=== PATIENT | female | born 1985 | race Caucasian/White ===

== ENCOUNTER 2023-01-22 21:44 | Emergency (ER) | payer OTHER ==
[2023-01-22] MEDS ORDERED: ONDANSETRON 4 MG (ODT) TAB ONE (23:31)
[2023-01-22] MEDS ORDERED: ACETAMINOPHEN 500 MG TAB ONE ×2 (23:32→23:37)
[2023-01-23 00:49] LABS: SARS-COV-2 RT PCR POSITIVE (NEGATIVE)
--- NOTE | 2023-01-23 01:49 | ER ---
Nurse's Notes [facility] Name: Beena Ceja Age: 37 yrs Sex: Female : 1985 Arrival Date: 01/22/2023 Time: 21:48 Bed 7 Private MD: Diagnosis: SARS-associated coronavirus as the cause of diseases classified elsewhere Presentation: 01/22 22:02 Chief complaint: Patient states: "I woke up this morning with a fever and took a at as6 home covid test and it was positive and I can't seem to get my fever down" pt took Tylenol at 2100. Coronavirus screen: Client presents with at least one sign or symptom that may indicate coronavirus-19. Client reports previous positive COVID test result. Ebola Screen: No symptoms or risks identified at this time. Initial Sepsis Screen: Does the patient meet any 2 criteria? No. Patient's initial sepsis screen is negative. Does the patient have a suspected source of infection? No. Patient's initial sepsis screen is negative. Risk Assessment: Do you want to hurt yourself or someone else? Patient reports no desire to harm self or others. Onset of symptoms was January 22, 2023. 22:02 Method Of Arrival: Ambulatory as6 22:02 Acuity: NELLY 3 as6 Historical: - Allergies: 22:06 Amoxicillin; as6 22:06 PENICILLINS; as6 22:06 Codeine; as6 22:06 Tramadol HCl; as6 22:06 Naproxen; as6 - PMHx: 22:06 PCOS; Fibromyalgia; inersititais; Anxiety; as6 - PSHx: 22:06 shoulder; as6 - Immunization history:: Client reports having NOT received the Covid vaccine. - Social history:: Smoking status: Patient/guardian denies using tobacco. Screenin/21 02:00 [facility] ED Fall Risk Assessment (Adult) History of falling in the last 3 months, ll3 including since admission No falls in past 3 months (0 pts) Confusion or Disorientation No (0 pts) Intoxicated or Sedated No (0 pts) Impaired Gait No (0 pts) Mobility Assist Device Used No (0 pt) Altered Elimination No (0 pt) Score/Fall Risk Level 0 - 2 = Low Risk Oriented to surroundings, Maintained a safe environment, Educated pt \\T\\ family on fall prevention, incl call for assistance when getting out of bed. Abuse screen: Denies threats or abuse. Denies injuries from another. Nutritional screening: No deficits noted. Tuberculosis screening: No symptoms or risk factors identified. Assessment: 01:30 General: Appears uncomfortable, Behavior is calm, cooperative. General: Reports fever ll3 for 12-24 hours. Pain: Complains of pain in right aspect of posterior pharynx. Neuro: Level of Consciousness is awake, alert, obeys commands, Oriented to person, place, time, situation. Respiratory: Respiratory effort is even, unlabored, Respiratory pattern is regular, symmetrical. Derm: Skin is pink, warm \\T\\ dry. Vital Signs: 01/22 22:02 BP 91 / 75; Pulse 83; Resp 18 S; Temp 101.6(O); Pulse Ox 94% on R/A; Weight 112.49 kg as6 (R); Height 5 ft. 4 in. (R); Pain 4/10; 01/23 01:10 BP 98 / 67; Pulse 69; Resp 18; Temp 99.3(O); Pulse Ox 96% on R/A; ll3 01/22 22:02 Body Mass Index 42.57 (112.49 kg, 162.56 cm) as6 01/22 22:02 Pain Scale: Adult as6 ED Course: 01/22 21:48 Patient arrived in ED. ja2 21:51 Júnior Corcoran PA is PHCP. cp 21:51 Tatyana Mcclellan MD is Attending Physician. cp 22:06 Triage completed. as6 22:08 Arm band placed on. as6 01/23 02:00 Patient has correct armband on for positive identification. Placed in gown. Bed in low ll3 position. Call light in reach. Side rails up X 1. 02:02 No provider procedures requiring assistance completed. Patient did not have IV access ll3 during this emergency room visit. Administered Medications: 01/22 23:33 Drug: Ondansetron PO 4 mg Route: PO; as6 01/23 02:02 Follow up: Response: No adverse reaction ll3 01/22 23:33 Drug: Acetaminophen PO 1000 mg Route: PO; as6 01/23 02:02 Follow up: Response: No adverse reaction; Temperature is decreased ll3 Medication: 02:00 VIS not applicable for this client. ll3 Outcome: 01:49 Discharge ordered by . [email or web address] 02:02 Discharged to home ambulatory. ll3 02:02 Condition: stable 02:02 Discharge instructions given to patient, Instructed on discharge instructions, follow up and referral plans. medication usage, Demonstrated understanding of instructions, follow-up care, medications, Prescriptions given X 3. 02:02 Patient left the ED. ll3 Signatures: Júnior Corcoran PA PA cp Alexander, Jessica ja2 Harjinder Dennis RN RN as6 Prince Freire RN RN ll3
--- NOTE | 2023-01-23 01:49 | EDPHYS ---
Physician Documentation [facility] Name: Beena Ceja Age: 37 yrs Sex: Female : 1985 Arrival Date: 01/22/2023 Time: 21:48 Bed 7 Private MD: ED Physician Tatyana Mcclellan HPI: 01/22 22:45 This 37 yrs old Female presents to ER via Ambulatory with complaints of Fever, Covid+ cp Home Test. 22:45 The patient reports fever, that was measured at 104 degrees Fahrenheit. Onset: The cp symptoms/episode began/occurred today. Patient reports started feeling bad yesterday with symptoms worsening while driving to work this morning. Took home COVID-19 test that was positive. Historical: - Allergies: 22:06 Amoxicillin; as6 22:06 PENICILLINS; as6 22:06 Codeine; as6 22:06 Tramadol HCl; as6 22:06 Naproxen; as6 - PMHx: 22:06 PCOS; Fibromyalgia; inersititais; Anxiety; as6 - PSHx: 22:06 shoulder; as6 - Immunization history:: Client reports having NOT received the Covid vaccine. - Social history:: Smoking status: Patient/guardian denies using tobacco. ROS: 22:50 Constitutional: Positive for body aches, chills, fever, Negative for poor PO intake. cp 22:50 Cardiovascular: Negative for chest pain, edema. cp 22:50 Respiratory: Positive for cough, Negative for shortness of breath, wheezing. 22:50 Abdomen/GI: Positive for nausea, Negative for abdominal pain, vomiting, diarrhea, constipation. 22:50 Eyes: Negative for injury, pain, redness, and discharge. cp 22:50 ENT: Positive for sore throat, Negative for drainage from ear(s), ear pain, difficulty cp swallowing, difficulty handling secretions. 22:50 Neck: Negative for pain with movement, pain at rest, stiffness. 22:50 Skin: Negative for rash. 22:50 Neuro: Negative for altered mental status, dizziness, headache, weakness. 22:50 All other systems are negative. Exam: 22:55 Constitutional: The patient appears in no acute distress, alert, awake, cp non-diaphoretic, non-toxic, well developed, well nourished, obese. 22:55 Head/Face: Normocephalic, atraumatic. cp 22:55 Eyes: Periorbital structures: appear normal, Conjunctiva: normal, no exudate, no injection, Sclera: no appreciated abnormality, Lids and lashes: appear normal, bilaterally. 22:55 ENT: External ear(s): are unremarkable, Ear canal(s): are normal, clear, TM's: dullness, bilaterally, Nose: is normal, Mouth: Lips: moist, Oral mucosa: moist, Posterior pharynx: Airway: no evidence of obstruction, patent, Tonsils: with erythema, no enlargement, no exudate, swelling, is not appreciated, erythema, that is moderate, exudate, is not appreciated. 22:55 Neck: ROM/movement: is normal, is supple, without pain, no range of motions limitations, no meningismus, Lymph nodes: no appreciated lymphadenopathy. 22:55 Chest/axilla: Inspection: normal. 22:55 Cardiovascular: Rate: normal, Rhythm: regular, Edema: is not appreciated, JVD: is not appreciated. 22:55 Respiratory: the patient does not display signs of respiratory distress, Respirations: normal, no use of accessory muscles, no retractions, labored breathing, is not present, Breath sounds: are clear throughout, no decreased breath sounds, no stridor, no wheezing. 22:55 Abdomen/GI: Exam negative for discomfort, distension, guarding, Inspection: abdomen appears normal. 22:55 Back: CVA tenderness, is absent. 22:55 Skin: no rash present. 22:55 Neuro: Orientation: to person, place \T\ time. Mentation: is normal, Motor: moves all fours, strength is normal, Gait: is steady, at a normal pace, without difficulty. Vital Signs: 22:02 BP 91 / 75; Pulse 83; Resp 18 S; Temp 101.6(O); Pulse Ox 94% on R/A; Weight 112.49 kg as6 (R); Height 5 ft. 4 in. (R); Pain 4/10; 01/23 01:10 BP 98 / 67; Pulse 69; Resp 18; Temp 99.3(O); Pulse Ox 96% on R/A; ll3 01/22 22:02 Body Mass Index 42.57 (112.49 kg, 162.56 cm) as6 01/22 22:02 Pain Scale: Adult as6 MDM: 01/22 22:12 Patient medically screened. cp 23:00 Differential diagnosis: viral Infection, bacterial infection, pneumonia UTI, cp gastroenteritis, meningitis, uti. 01/23 01:49 Data reviewed: vital signs, nurses notes, lab test result(s). cp 01:49 Consideration of Admission/Observation Escalation of care including cp admission/observation considered. I considered the following discharge prescriptions or medication management in the emergency department Medications were administered in the Emergency Department. See MAR. Test considered but Not performed: Labs: cbc, bmp. Counseling: I had a detailed discussion with the patient and/or guardian regarding: the historical points, exam findings, and any diagnostic results supporting the discharge/admit diagnosis, lab results, the need for outpatient follow up, a family practitioner, to return to the emergency department if symptoms worsen or persist or if there are any questions or concerns that arise at home. Response to treatment: the patient's symptoms have mildly improved after treatment, and as a result, I will discharge patient. 01/22 22:30 Order name: COVID-19/FLU A+B; Complete Time: 01:04 cp 01/23 01:05 Interpretation: Reviewed. cp 01/22 22:30 Order name: Strep; Complete Time: 01:04 cp 01/23 00:40 Order name: Throat Culture EDIL 01/23 01:05 Order name: Vital Signs: please update to include temp; Complete Time: 01:11 cp Administered Medications: 01/22 23:33 Drug: Ondansetron PO 4 mg Route: PO; as6 01/23 02:02 Follow up: Response: No adverse reaction ll3 01/22 23:33 Drug: Acetaminophen PO 1000 mg Route: PO; as6 01/23 02:02 Follow up: Response: No adverse reaction; Temperature is decreased ll3 Disposition Summary: 01/23/23 01:49 Discharge Ordered Location: Home cp Problem: new cp Symptoms: have improved cp Condition: Stable cp Diagnosis - SARS-associated coronavirus as the cause of diseases classified elsewhere cp Followup: cp - With: Private Physician - When: 2 - 3 days - Reason: Worsening of condition Discharge Instructions: - Discharge Summary Sheet cp - Aspirin and Your Heart cp - Form - Excuse from Work, School, or Physical Activity cp - COVID-19 cp - How to Protect Yourself and Others - [facility] (12/30/2021) cp - 10 Things You Can Do to Manage Your COVID-19 Symptoms at Home - [facility] (05/20/2021) cp - COVID-19: Quarantine and Isolation - [facility] (02/01/2022) cp - COVID-19: What to Do If You Are Sick - [facility] (01/24/2022) cp Forms: - Medication Reconciliation Form cp - Thank You Letter cp - Antibiotic Education cp - Prescription Opioid Use cp Prescriptions: - Bromfed DM 2-30-10 mg/5 mL Oral syrup - administer 10 milliliter by ORAL route every 6 hours as needed for cold cp symptoms; 180 milliliter; Refills: 0, Product Selection Permitted - Paxlovid (EUA) 300 mg (150 mg x 2)-100 mg Oral Tablet, Dose Pack - take 1 dose pack by ORAL route per package directions; 30 tablet; Refills: 0, cp Product Selection Permitted - Zofran 4 mg Oral Tablet - take 1 tablet by ORAL route every 12 hours As needed; 20 tablet; Refills: 0, cp Product Selection Permitted Signatures: Dispatcher [employer] EDIL Júnior Corcoran PA PA cp Harjinder Dennis RN RN as6 Prince Freire RN ll3
[2023-01-23 11:47] VITALS: BP 98/67; TEMP 99.3; O2SAT 96
== END 2023-01-23 02:02 | disposition home or self-care (01) ==
LOC: ER 21:44
DX: U07.1 COVID-19 (principal); Z88.0 Allergy status to penicillin; Z88.1 Allergy status to other antibiotic agents; Z88.5 Allergy status to narcotic agent
CPT/HCPCS: 87070; 87081; 0240U; Q0162; 99283